=== PATIENT | female | born 1990 | race Hispanic/Latino ===

== ENCOUNTER 2021-09-27 20:21 | Emergency (ER) | payer OTHER, SELFPAY ==
--- NOTE | ~2021-09-27 | US_ITS ---
EXAMINATION: US OB <= 14 weeks fetus EXAM DATE: 09/28/2021 00:16 INDICATION: Pelvic pain vaginal bleeding rule out ectopic VB . 1st trimester. Beta hCG 15,000 TECHNIQUE: Pelvic obstetrical transabdominal sonogram was performed by a technologist. There are mu ltiple grayscale and Doppler images available for interpretation. There are no earlier studies of th is gestation for comparison. FINDINGS: The uterus measures 15.9 x 13.7 x 9.4 cm. There is large amount of complex solid and cystic material within the endometrial cavity, region measuring about 7 x 9 cm without identifiable a natomy. Differential diagnosis includes failed , molar /gestational trophoblastic d isease. Given size and appearance of this material, D and C may be appropriate. Recommend ACADEMIC DIRECTOR consult . The ovaries are identified and morphologically normal, with low resistance Doppler flow confirmed. IMPRESSION: Large amount of heterogeneous solid and cystic intrauterine soft tissue with differentia l diagnosis including failed , molar /gestational trophoblastic disease. Reviewed, dictated and finalized at location A. BIOLOGY IMPRESSION: Large amount of heterogeneous solid and cystic intrauterine soft t issue with differential diagnosis including failed , molar /g estational trophoblastic disease.
[2021-09-27 20:27] VITALS: BP 130/75; PULSE 94; RESP 17; TEMP 36.4; O2SAT 100
--- NOTE | 2021-09-27 22:20 | ED.GENADULT ---
HPI - General Adult General Chief complaint: Vaginal Bleeding Stated complaint: vaginal bleed in Time Seen by Provider: 09/27/21 21:50 History of Present Illness HPI narrative: Patient 31-year-old female who presents the emergency department with chief complaint of vaginal bleeding. The patient reports that she is proximately 4 weeks has not had any care yet and not had an ultrasound in this to confirm whether she has an IUP. The patient reports that she started having some spotting reports that she has no lightheadedness no nausea no vomiting. The patient reports symptoms or not improved by anything or they worsened by anything. Related Data Home Medications Medication Instructions Recorded Confirmed No Home Medications 09/27/21 09/27/21 Allergies Allergy/AdvReac Type Severity Reaction Status Date / Time No Known Allergies Allergy Verified 09/27/21 21:51 Review of Systems Review of Systems: A 10 system review of systems was completed on the patient and is negative except for what is stated in the HPI. Nursing and ancillary documentation was reviewed. Exam Narrative: GENERAL: Well-appearing, well-nourished, and in no acute distress. HEAD: Normocephalic, atraumatic. EYES: PERRLA and EOMI. ENT: Nares clear, no rhinorrhea or epistaxis. Mucous membranes moist. NECK: Supple. CHEST: Clear to auscultation. No respiratory distress. HEART: Regular rate and rhythm. No murmur heard. Normal peripheral pulses. ABDOMEN: Soft, nontender, nondistended, normal active bowel sounds. EXTREMITIES: Normal range of motion. No edema. SKIN: Warm, dry, no rash. NEURO: No focal deficits. Alert and oriented x3. PSYCH: Normal mood and affect. Course Course Emergency Course: ultrasound shows evidence of gestations sack and pole or yoke sack. Vital Signs Vital signs: Vital Signs Temperature 36.4 C L 09/27/21 20:27 Pulse Rate 94 09/27/21 20:27 Respiratory Rate 17 09/27/21 20:27 Blood Pressure 130/75 09/27/21 20:27 Pulse Oximetry 100 09/27/21 20:27 Temperature 36.4 C L 09/27/21 20:27 Pulse Rate 87 09/27/21 23:47 Respiratory Rate 16 09/27/21 23:47 Blood Pressure 120/81 09/27/21 23:47 Pulse Oximetry 99 09/27/21 23:47 Medical Decision Making Vital Signs Vital Signs: Vital Signs Temperature 36.4 C L 09/27/21 20:27 Pulse Rate 94 09/27/21 20:27 Respiratory Rate 17 09/27/21 20:27 Blood Pressure 130/75 09/27/21 20:27 Pulse Oximetry 100 09/27/21 20:27 Temperature 36.4 C L 09/27/21 20:27 Pulse Rate 87 09/27/21 23:47 Respiratory Rate 16 09/27/21 23:47 Blood Pressure 120/81 09/27/21 23:47 Pulse Oximetry 99 09/27/21 23:47 Lab Data Result diagrams: 09/27/21 22:25 09/27/21 22:25 Labs: Lab Results 09/27/21 09/27/21 09/27/21 Range/Units 22:25 22:25 22:25 WBC 8.0 (4.5-10.0) K/mm3 RBC 3.49 L (4.2-5.4) M/mm3 Hgb 10.7 L (12.0-15.0) g/dL Hct 32.0 L (37.0-47.0) % MCV 91.7 (80-100) fl MCH 30.7 (26-34) pg MCHC 33.4 (32-36) g/dl RDW 13.7 (11.5-14.5) % Plt Count 222 (150-375) k/mm3 MPV 9.4 (7.4-10.4) fl Immature Gran % (Auto) 0.6 H (0-0.5) % Neut % (Auto) 55.3 (45.5-73.1) % Lymph % (Auto) 32.9 (18.3-44.2) % [place] % (Auto) 7.8 (2.6-8.5) % Eos % (Auto) 3.0 (0-4.4) % Baso % (Auto) 0.4 (0.2-1.2) % Lymph # (Auto) 2.63 (0.9-3.2) K/mm3 [place] # (Auto) 0.6 (0.1-0.6) K/mm3 Eos # (Auto) 0.2 (0-0.3) K/mm3 Baso # (Auto) 0.0 (0.0-0.1) K/mm3 Abs Immat Gran (auto) 0.05 H (0.00-0.031) K/mm3 Absolute Neuts (auto) 4.4 (1.3-6.7) K/mm3 Absolute Nucleated RBC 0.0 (0.0-0.012) K/mm3 Nucleated RBC % 0.0 (0.0-0.2) % Sodium 136 L (137-145) mmol/L Potassium 3.4 (3.4-5.0) mmol/L Chloride 105 (98-107) mmol/L Carbon Dioxide 21 L (22-30) mmol/L Anion Gap 10 (8-16) mmol/L BUN
[2021-09-27] MEDS: SODIUM CHLORIDE 0.9% IV 1,000 ML 999 ML IV CONT (22:22)
[2021-09-27 22:35] LABS: Basophils Percent Auto 0.4 % (0.2-1.2); Eosinophils Absolute Auto 0.2 K/mm3 (0-0.3); Hemoglobin 10.7 g/dL (12.0-15.0); Immature Granulocyte Absolute 0.05 K/mm3 (0.00-0.031); Immature Granulocyte Percent A 0.6 % (0-0.5); Lymphocytes Absolute Auto 2.63 K/mm3 (0.9-3.2); Lymphocytes Percent Auto 32.9 % (18.3-44.2); Mean Corpuscular HGB Conc 33.4 g/dl (32-36); Mean Corpuscular Hemoglobin 30.7 pg (26-34); Mean Corpuscular Volume 91.7 fl (80-100); Mean Platelet Volume 9.4 fl (7.4-10.4); Monocytes Absolute Auto 0.6 K/mm3 (0.1-0.6); Monocytes Percent Auto 7.8 % (2.6-8.5); Neutrophils Absolute Auto 4.4 K/mm3 (1.3-6.7); Neutrophils Percent Auto 55.3 % (45.5-73.1); Platelet Count Result 222 k/mm3 (150-375); Red Blood Count 3.49 M/mm3 (4.2-5.4); Red Cell Distribution Width 13.7 % (11.5-14.5)
[2021-09-27 22:45] LABS: Add Urine Microscopic? YES; Appearance Urine Clear (Clear); Bacteria Urine Trace /hpf; Bilirubin Urine Negative (Negative); Blood Urine 3+ (Negative); Color Urine Yellow (Yellow); Glucose Urine UA Negative (Negative); Ketones Urine Negative (Negative); Leukocyte Esterase Ur Trace LEU/UL (Negative); Mucus Urine Moderate /lpf; Nitrate Urine Negative (Negative); Protein Urine 1+ mg/dL (Negative); Specific Grav Ur 1.028 (1.001-1.035); Squamous Epithelial Cell Urine Occasional /hpf (Few); Urobilinogen Urine Negative mg/dL (<2.0); WBC Urine 31-50 /hpf
[2021-09-27 22:47] LABS: Alanine Aminotransferase 39 U/L (4-35); Alkaline Phosphatase 100 U/L (38-126); Anion Gap 10 mmol/L (8-16); Aspartate Amino Transferase 41 U/L (14-36); Bilirubin,Total 0.4 mg/dL (0.2-1.3); Blood Urea Nitrogen 15 mg/dL (7-17); Calcium 8.7 mg/dL (8.4-10.2); Carbon Dioxide 21 mmol/L (22-30); Chloride 105 mmol/L (98-107); Estimated CRCL calculation 96 ml/min; Estimated Glomerular Filt Rate > 60; Glucose 85 mg/dL (65-110); Potassium 3.4 mmol/L (3.4-5.0); Sodium 136 mmol/L (137-145)
[2021-09-27 23:47] VITALS: BP 120/81; PULSE 87; RESP 16; O2SAT 99
[2021-09-28 01:24] VITALS: BP 116/76; PULSE 86; RESP 16; O2SAT 99
== END 2021-09-28 01:24 | disposition home or self-care (01) ==
PROVIDERS: Emergency Provider Emergency Medicine
DX: O20.0 Threatened abortion (principal); Z3A.01 Less than 8 weeks gestation of pregnancy
CPT/HCPCS: 36415; 76801; 80053; 81001; 84702; 85025; 85461; 87086; 96360; 99284; J7030

== ENCOUNTER 2023-02-15 00:19 | Inpatient (IN) | payer OTHER, SELFPAY ==
[2023-02-15] VITALS (21 sets, daily range): BP systolic 100–129; BP diastolic 65–80; PULSE 76–105; RESP 16–18; TEMP 36.3–37.2; O2SAT 99–100; BMI 29.3
--- NOTE | 2023-02-15 01:23 | LDADM ---
This patient, Brittany Lovelace, was admitted to Labor/Delivery/Recovery 103 on 02/15/23 at 00:19. Plans for labor, pain management and were discussed with patient. Patient/family oriented to hospital policies and general routines including ID bracelet, bed and alarms, visiting hours, pain management, procedures, bathroom and other care routines, personal items, smoking policy, room service/diet and guest tray routines, infant security routines, and visiting hours. Patient/Family are encouraged to report perceived risks to care and to ask questions if they do not understand what they are told or what they should do. See OBIX for further documentation.
[2023-02-15 01:42] LABS: Basophils Percent Auto 0.6 % (0.2-1.2); Eosinophils Absolute Auto 0.1 K/mm3 (0-0.3); Eosinophils Percent Auto 1.4 % (0-4.4); Hematocrit 34.9 % (37.0-47.0); Hemoglobin 11.1 g/dL (12.0-15.0); Immature Granulocyte Absolute 0.05 K/mm3 (0.00-0.031); Immature Granulocyte Percent A 0.7 % (0-0.5); Lymphocytes Absolute Auto 1.94 K/mm3 (0.9-3.2); Lymphocytes Percent Auto 28.1 % (18.3-44.2); Mean Corpuscular HGB Conc 31.8 g/dl (32-36); Mean Corpuscular Hemoglobin 25.4 pg (26-34); Mean Corpuscular Volume 79.9 fl (80-100); Mean Platelet Volume 10.5 fl (7.4-10.4); Monocytes Absolute Auto 0.7 K/mm3 (0.1-0.6); Monocytes Percent Auto 9.4 % (2.6-8.5); Neutrophils Absolute Auto 4.1 K/mm3 (1.3-6.7); Neutrophils Percent Auto 59.8 % (45.5-73.1); Platelet Count Result 215 k/mm3 (150-375); Red Blood Count 4.37 M/mm3 (4.2-5.4); Red Cell Distribution Width 15.3 % (11.5-14.5); White Blood Count 6.9 K/mm3 (4.5-10.0)
--- NOTE | 2023-02-15 02:29 | P.PNAN_ITS ---
Anes - Eval Pre Procedure Procedure: Labor epidural Date/Time: 02/15/23 02:29 Surgeon: Gale Guerrero Preop Diagnosis: Abdominal pain with contractions Pre Op Diagnosis: Leaking/Contractions Patient Data Age: 32 Gender: F Height: 1.52 m Weight: 68.18 kg Last Vital Signs Pulse 90 02/15/23 02:00 BP 120/75 02/15/23 02:00 O2 Del Method Room Air 02/15/23 01:20 Allergies Allergy/AdvReac Type Severity Reaction Status Date / Time No Known Allergies Allergy Verified 09/27/21 21:51 Home Medications Medication Instructions Recorded Confirmed Type No Home Medications 09/27/21 09/27/21 History Laboratory Tests 02/15/23 01:28 WBC 6.9 K/mm3 (4.5-10.0) RBC 4.37 M/mm3 (4.2-5.4) Hgb 11.1 L g/dL (12.0-15.0) Hct 34.9 L % (37.0-47.0) MCV 79.9 L fl (80-100) MCH 25.4 L pg (26-34) MCHC 31.8 L g/dl (32-36) RDW 15.3 H % (11.5-14.5) Plt Count 215 k/mm3 (150-375) MPV 10.5 H fl (7.4-10.4) Immature Gran % (Auto) 0.7 H % (0-0.5) Neut % (Auto) 59.8 % (45.5-73.1) Lymph % (Auto) 28.1 % (18.3-44.2) [place] % (Auto) 9.4 H % (2.6-8.5) Eos % (Auto) 1.4 % (0-4.4) Baso % (Auto) 0.6 % (0.2-1.2) Lymph # (Auto) 1.94 K/mm3 (0.9-3.2) [place] # (Auto) 0.7 H K/mm3 (0.1-0.6) Eos # (Auto) 0.1 K/mm3 (0-0.3) Baso # (Auto) 0.0 K/mm3 (0.0-0.1) Abs Immat Gran (auto) 0.05 H K/mm3 (0.00-0.031) Absolute Neuts (auto) 4.1 K/mm3 (1.3-6.7) Absolute Nucleated RBC 0.0 K/mm3 (0.0-0.012) Nucleated RBC % 0.0 % (0.0-0.2) RPR Pending Hep Bs Antigen Pending HIV 1&2 Ab/P24 Ag 4thGn Pending Rubella IgG Antibody Pending Blood Type O Positive Antibody Screen Pending : gestational age HCG: positive Patient hx anesthesia problems: none Family hx anesthesia problems: none Results Review: All pre-operative results and documents have been reviewed as part of the pre- operative evaluation. [facility] Social History Social History Smoking status: Never smoker Lack of Transportation: No Lack of Food: Never True Current Housing: I Have Housing Concerned About Future Housing: No Difficulty Paying Gas/Electric Bills: No Difficulty Paying for Meds: No Currently Unemployed: No Education: Grade School Difficulty w/ Childcare or Family Care: No Exam Day of Procedure 02/15/23 02:29
[2023-02-15 02:34] LABS: HIV 1/2 Ab P24 Ag Result Negative (Negative)
[2023-02-15 02:37] LABS: Hepatitis B Surface Antigen Negative (Negative); Rubella IgG Antibody < 0.6 IU/ML
[2023-02-15] MEDS: AMPICILLIN 2 GM/NS 100 ML 2 GM/100 ML BAG IVPB (02:38)
[2023-02-15] MEDS: LACTATED RINGERS 1,000 ML 125 ML IV CONT (02:38)
[2023-02-15] MEDS: OXYTOCIN 30 UNITS/NS 500 ML 30 UNITS/500 ML BAG 999 UNITS IV CONT (05:31)
--- NOTE | 2023-02-15 05:39 | PM.IMHP ---
H&P: HPI History of Present Illness Date/Time: 02/15/23 05:39 Chief Complaint: Labor at term Narrative: this is a 32-year-old multiparous patient at term with a due date of 03/08 23 presents in active labor. Her group B strep status is unknown. Spontaneous vaginal delivery is imminent COUNTS INCLUDE 234 BEDS AT THE [facility] Social History Social History Smoking status: Never smoker Lack of Transportation: No Lack of Food: Never True Current Housing: I Have Housing Concerned About Future Housing: No Difficulty Paying Gas/Electric Bills: No Difficulty Paying for Meds: No Currently Unemployed: No Education: Grade School Difficulty w/ Childcare or Family Care: No Meds Home Medications and Allergies Home Medications Medication Instructions Recorded Confirmed Type No Home Medications 09/27/21 09/27/21 History Allergies Allergy/AdvReac Type Severity Reaction Status Date / Time No Known Allergies Allergy Verified 09/27/21 21:51 Vital Signs Vital Signs - 24 hr 02/15/23 00:56 02/15/23 01:00 02/15/23 01:15 Temperature Pulse Rate 87 92 88 Blood Pressure 117/66 115/68 123/71 Oxygen Delivery 02/15/23 01:30 02/15/23 01:45 02/15/23 02:00 Temperature Pulse Rate 105 H 101 H 90 Blood Pressure 117/71 117/73 120/75 Oxygen Delivery 02/15/23 04:19 02/15/23 02:38 02/15/23 00:44 Temperature 97.7 F 97.4 F L 97.5 F L Pulse Rate 84 Blood Pressure 112/80 Oxygen Delivery 02/15/23 01:20 Temperature Pulse Rate Blood Pressure Oxygen Delivery Room Air Exam Const: General: cooperative, healthy appearing and comfortable Nutritional Appearance: average body habitus Orientation/consciousness: oriented to person, oriented to place and oriented to time HENMT: Head: normal to inspection Resp: Effort & Inspection: normal respiratory effort Cardio: Rate: regular rate Rhythm: regular rhythm Heart sounds: S1 normal heart sound present and S2 normal heart sound present GI: Inspection: normal to inspection : External Female Exam: normal external appearance Speculum Exam - Vagina: normal appearance of the vagina Speculum Exam - Cervix: normal appearance of the cervix ( cervix complete with heart tones reassuring. AROM clear ) H&P: Results Labs Labs: Short CBC 02/15/23 Range/Units 01:28 WBC 6.9 (4.5-10.0) K/mm3 Hgb 11.1 L (12.0-15.0) g/dL Hct 34.9 L (37.0-47.0) % Plt Count 215 (150-375) k/mm3 Assessment and Plan Assessment and plan (1) Term : Code(s): Z34.90 - Encounter for supervision of normal , unspecified, unspecified trimester Status: Acute Plan spontaneous vaginal delivery is expected. Ampicillin given for unknown group B strep status
--- NOTE | 2023-02-15 05:42 | PM.OBPRVD ---
OB - Delivery Note Procedure Delivery date: 02/15/23 Delivery monitor: External FHT and External Uterine Route of delivery: Episiotomy description: None Laceration Description: Perineal - 1st Degree Delivery repair: vicryl Quantitative Blood Loss (ml): 60 Anesthesia type: Local Disposition: Floor Baby Date of : 02/15/23 Time of : 05:28 Weeks of gestation at delivery: 37 gender: Male presentation: vertex position: Right Occiput Anterior Placenta delivery description: Spontaneous Cord Vessel Description: 3 Vessels score one minute: 9 score five minutes: 9
[2023-02-15] MEDS: IBUPROFEN 600 MG TABLET (05:50)
[2023-02-15] MEDS: LIDOCAINE HCL 1% LOCAL INJ 20 ML VIAL (06:11)
[2023-02-15] MEDS: OXYTOCIN 30 UNITS/NS 500 ML 30 UNITS/500 ML BAG 125 UNITS IV CONT (06:11)
[2023-02-15 06:43] LABS: Rapid Plasma Reagin Non-Reactive (NonReactive)
[2023-02-15] MEDS: IBUPROFEN 600 MG TABLET PO ×2 (12:10→17:45)
--- NOTE | 2023-02-15 12:52 | PC.NURSE ---
[id number] Introductions were made, then consulted with patient to assess needs related to with want ad receiver Darryn #[id number]. Mother discussed her?plans to feed?her and the?experience so far. Mother denies pain with . Reviewed with mother that is enough at this time. Output is appropriate. At this time, there is no medical reason to supplement with a bottle. Resources provided for inpatient with name written on the white board. Mother voiced understanding of information and declined any assistance at this time. Reported to the primary RN.
[2023-02-16 20:40] VITALS: BP 113/65; PULSE 68; RESP 18; TEMP 37; O2SAT 97
--- NOTE | 2023-02-17 06:22 | PM.OBPNVD ---
OB - PN: Subj Subjective Date/time seen: 02/17/23 06:22 Patient comments: no complaints and pain well controlled baby status: doing well and nursing well OB - PN: Obj Data Labs 02/15/23 01:28 OB - PN A/P Plan day: 2 Plan: routine care, discharge home and follow up 6 weeks Time Spent With Patient Time: Total time spent is greater than 50% in coordination of care (as documented) at patient's floor/unit and/or counseling patient: Time with patient: less than 15 minutes Exam Const: General: cooperative, healthy appearing and comfortable Nutritional Appearance: average body habitus Orientation/consciousness: oriented to person, oriented to place and oriented to time HENMT: Head: normal to inspection Resp: Effort & Inspection: normal respiratory effort Cardio: Rate: regular rate Rhythm: regular rhythm Heart sounds: S1 normal heart sound present and S2 normal heart sound present GI: Inspection: normal to inspection ( fundus firm below the umbilicus)
--- NOTE | 2023-02-17 06:23 | PM.DS ---
DS: Admitting Diagnosis Discharge Date 02/17/2023 Admitting Diagnosis term DS: Discharge Diagnosis Discharge Diagnosis (1) Term : Code(s): Z34.90 - Encounter for supervision of normal , unspecified, unspecified trimester Status: Acute DS: Summary Hospital Course Reason for hospitalization: in active labor at term Hospital Course: patient was admitted in active labor at term. She underwent spontaneous vaginal delivery of male infant. Her hospital course unremarkable. She was , eating regular diet, voiding without difficulty, ambulating, and generally without complaints. Time Spent with Patient Time attestation: Total time spent providing and/or coordinating discharge services: Exam Const: General: cooperative, healthy appearing and comfortable Nutritional Appearance: average body habitus Orientation/consciousness: oriented to person, oriented to place and oriented to time HENMT: Head: normal to inspection Resp: Effort & Inspection: normal respiratory effort Cardio: Rate: regular rate Rhythm: regular rhythm Heart sounds: S1 normal heart sound present and S2 normal heart sound present GI: Inspection: normal to inspection ( Fundus firm below the umbilicus) Auscultation: normal bowel sounds Discharge Plan Discharge Discharging Clinician: Joe Reina Patient Disposition: Home, Self-Care Activity: may shower, no straining and pelvic rest Diet: heart healthy Wound Care Instructions: follow printed instructions Patient Instructions: Antibiotic Form Stand Alone Forms: General Discharge Information Follow-up/Referrals: Joe Reina MD [Physician] - Discharge Medications: No Action No Home Medications Date of admission: 02/15/23 00:19 Primary Care Provider: UNKNOWN,DOCTOR Admitting Provider: Joe Reina Attending physician on admission: Joe Reina Condition: Stable
[2023-02-17 07:35] VITALS: BP 112/61; PULSE 80; RESP 16; TEMP 37.1; O2SAT 100
[2023-02-17] MEDS: IBUPROFEN 600 MG TABLET PO (08:45)
[2023-02-17] MEDS: DOCUSATE SODIUM 100 MG CAPSULE PO (08:45)
[2023-02-17] MEDS: MULTIVIT/MIN/PREN/FOL AC/IRON TABLET 1 TAB PO (08:46)
--- NOTE | 2023-02-17 10:00 | PC.NURSE ---
This patient was informed that she is rubella non-immune and would be needing the MMR vaccine. MMR vaccine information sheet provided in [facility] [employer] [place]. This patient refused the MMR vaccine at this time.
[2023-02-17 13:27] LABS: Hematocrit 33.5 % (37.0-47.0); Hemoglobin 10.2 g/dL (12.0-15.0)
[2023-02-18 07:52] VITALS: BP 109/68; PULSE 88; RESP 16; TEMP 37.1; O2SAT 97
== END 2023-02-17 11:25 | disposition home or self-care (01) | DRG 560 ==
LOC: ANHLDR 01:03 → ANHOB2 08:08
PROVIDERS: Admitting Provider Obstetrics & Gynecology; PCP Registered Nurse; Visit Provider Obstetrics & Gynecology
DX: O62.3 Precipitate labor (principal); Z37.0 Single live birth; Z3A.37 37 weeks gestation of pregnancy; O70.0 First degree perineal laceration during delivery
CPT/HCPCS: 36415; 85014; 85018; 85025; 86592; 86703; 86762; 86850; 86900; 86901; 87340; A9270; G0432; J0290; J2590; J7120